=== PATIENT | female | born 2000 | race Caucasian/White ===

== ENCOUNTER 2021-02-01 15:04 | Outpatient (REF) | payer OTHER, SELFPAY ==
[2021-02-01 16:26] LABS: MANUAL DIFF FLAG NO
[2021-02-01 16:33] LABS: Basophils Percent Auto 0.2 % (0-2); Eosinophils Absolute Auto 0.1 X10*3/uL (0.0-0.4); Eosinophils Percent Auto 0.7 % (0-4); Hematocrit 39.1 % (37-47); Hemoglobin 12.8 g/dl (12.0-16.0); Imm Gran Abs Auto 0.02 X10*3/uL (0.00-0.03); Imm Gran Pct Auto 0.2 % (0.0-0.4); Lymphocytes Absolute Auto 2.9 X10*3/uL (1.2-4.9); Lymphocytes Percent Auto 32.7 % (20-40); Mean Corpuscular HGB Conc 32.7 g/dl (31.0-35.0); Mean Corpuscular Hemoglobin 28.4 pg (27.0-33.0); Mean Corpuscular Volume 86.9 fL (80-98); Mean Platelet Volume 10.2 fL (9.4-12.3); Monocytes Absolute Auto 0.7 X10*3/uL (0.1-1.2); Monocytes Percent Auto 8.2 % (2-11); Neutrophils Absolute Auto 5.2 X10*3/uL (2.0-8.3); Platelet Count 236 X10*3/uL (160-400); Red Cell Distribution Width 12.4 % (11.0-16.0); White Blood Count 8.9 X10*3/uL (4.8-10.8)
[2021-02-01 16:53] LABS: Alanine Aminotransferase 9 U/L (0-31); Anion Gap 12 (12-20); Aspartate Amino Transferase 14 U/L (5-31); Blood Urea Nitrogen 9 mg/dL (9-16); Calcium 9.9 mg/dL (8.4-10.2); Carbon Dioxide 25 mmol/L (22-29); Chloride 105 mmol/L (96-108); Cholesterol 158 mg/dL; Estimated Glomerular Filt Rate > 60; Glucose Fasting 81 mg/dL (60-99); HDL Cholesterol 43 mg/dL; LDL Cholesterol Calculated 101 mg/dl; Potassium 4.2 mmol/L (3.3-5.1); Sodium 138 mmol/L (135-145); Triglycerides 71 mg/dL
[2021-02-01 17:13] LABS: TSH reflex Free T4 1.45 uIU/mL (0.32-4.0); Vitamin D 25-OH Total 19.5 ng/mL (>30)
== END 2021-02-01 15:05 | disposition home or self-care (01) ==
LOC: HO.HMGCLDS 15:04
PROVIDERS: PCP Internal Medicine; Visit Provider Internal Medicine
DX: Z00.00 Encounter for general adult medical examination without abnormal findings (principal); R42 Dizziness and giddiness; F90.0 Attention-deficit hyperactivity disorder, predominantly inattentive type; I10 Essential (primary) hypertension
CPT/HCPCS: 36415; 80048; 80061; 82306; 84443; 84450; 84460; 85025

== ENCOUNTER 2021-09-17 21:54 | Emergency (ER) | payer OTHER, SELFPAY ==
[2021-09-17 22:01] VITALS: BP 114/70; PULSE 118; RESP 16; TEMP 36.8; O2SAT 99; BMI 24.7
[2021-09-17 22:12] LABS: MANUAL DIFF FLAG NO
[2021-09-17 22:13] LABS: Basophils Percent Auto 0.2 % (0-2); Eosinophils Percent Auto 0.2 % (0-4); Hematocrit 42.3 % (37.0-47.0); Hemoglobin 14.1 g/dl (12.0-16.0); Imm Gran Abs Auto 0.08 X10*3/uL (0.00-0.03); Imm Gran Pct Auto 0.5 % (0.0-0.4); Lymphocytes Absolute Auto 0.8 X10*3/uL (1.2-4.9); Lymphocytes Percent Auto 4.7 % (20-40); Mean Corpuscular HGB Conc 33.3 g/dl (31.0-35.0); Mean Corpuscular Hemoglobin 28.8 pg (27.0-33.0); Mean Corpuscular Volume 86.3 fL (80.0-98.0); Monocytes Absolute Auto 0.9 X10*3/uL (0.1-1.2); Monocytes Percent Auto 5.2 % (2-11); Neutrophils Absolute Auto 15.5 x10*3/uL (2.0-8.3); Neutrophils Percent Auto 89.2 % (45-73); Platelet Count 201 X10*3/uL (160-400); Red Cell Distribution Width 12.4 % (11.0-16.0); White Blood Count 17.4 X10*3/uL (4.8-10.8)
[2021-09-17 22:32] LABS: Alanine Aminotransferase 33 U/L (0-31); Albumin Level 4.7 g/dL (3.5-5.0); Alkaline Phosphatase 65 U/L (39-117); Anion Gap 14 (12-20); Aspartate Amino Transferase 25 U/L (5-31); Bilirubin Direct 0.4 mg/dL (0.0-0.5); Blood Urea Nitrogen 11 mg/dL (9-16); Calcium 9.6 mg/dL (8.4-10.2); Carbon Dioxide 25 mmol/L (22-29); Chloride 103 mmol/L (96-108); Creatinine Clr Calc Pharmacy 121.7; Estimated Glomerular Filt Rate > 60; Glucose Random 114 mg/dL (60-115); Lipase 13 U/L (8-78); Potassium 4.2 mmol/L (3.3-5.1); Sodium 138 mmol/L (135-145); Total Protein 7.9 g/dL (6.5-8.0)
--- NOTE | 2021-09-17 22:34 | ED.NAVMDI ---
HPI - Nausea/Vomiting/Diarrhea General Chief complaint: Nausea/Vomiting/Diarrhea Stated complaint: food poisoning Time Seen by Provider: 09/17/21 22:18 Source: patient Mode of arrival: ambulatory Limitations: no limitations History of Present Illness HPI Narrative: 20-year-old female who presents emergency department for evaluation of nausea vomiting diarrhea and flank pain. Patient states that she became ill around 19:30 hours. She states that she has vomited multiple times. She has also had 3 episodes of loose, watery diarrheal stool. She denies any blood in the emesis or the stool. She also states that she developed bilateral flank pain. She describes the pain as a soreness which is constant is 7/10 at its worst. She states that she had similar flank pain approximately 3 years prior when she had a kidney infection. The patient states that she did eat some chicken at work several hours prior to becoming ill and she is not sure if the chicken was cooked well. She is unaware of any other coworkers being ill from eating the chicken. The patient denied fever chills. She has had rhinorrhea and a cough x2 days, the cough is nonproductive. She denied chest pain, shortness of breath or dyspnea on exertion. She states she is having myalgias arthralgias. She has not been vaccinated for COVID-19. MD elicited complaint: nausea, vomiting and diarrhea Pertinent past history: other (Pyelonephritis) Onset (ago): hour(s) (3) Description of vomiting: watery and bilious Description of diarrhea: watery Associated nausea: Yes Associated abdominal pain: Yes (Bilateral flank pain) Location of pain: L flank and R flank Radiation: does not radiate Pain consistency: constant Severity: severe Pain scale (0-10): 7 Quality: other (Soreness) Exacerbating factors: eating (Drinking) Context: possible food poisoning (ate undercooked chicken at work) Associated symptoms: myalgias, cough, malaise, nausea/vomiting and weakness Related Data Previous Rx's Medication Instructions Recorded cholecalciferol (vitamin D3) 1,250 1,250 mcg PO QWEEK 90 Days #13 cap 02/02/21 mcg (50,000 unit) capsule ondansetron 4 mg disintegrating 4 mg PO Q6-8H PRN #14 tab 09/18/21 tablet Allergies Allergy/AdvReac Type Severity Reaction Status Date / Time No Known Allergies Allergy Verified 09/17/21 22:01 [No Known Allergies*] Review of Systems Review of Systems: Yes all other systems are reviewed and are negative Gastrointestinal: Gastrointestinal: Reports nausea [facility] Past Medical History [facility] Narrative: Past medical history: Reviewed below, pyelonephritis 3 years prior. Past surgical history: None. Social history: She denies tobacco, alcohol and drug use. Medical History ADHD (attention deficit hyperactivity disorder), inattentive type Intermittent lightheadedness Surgical History No pertinent past surgical history Family History Family History Father Substance abuse Mental health disorder Maternal Grandmother Mental health disorder Social History Social History Housing: Apartment Patient Tobacco Use Status: Never used Tobacco e-Cigarette/Vaping Use: Former Use Second Hand Smoke Exposure: Yes Advance Directives: No Advance Directives Information Provided: No Patient : No Current occupational status: employed Physical Exam Vital Signs: Vital Signs: Last Vital Signs Temp 98.2 F 09/18/21 00:00 Pulse 91 09/18/21 00:00 Resp 16 09/18/21 00:00 BP 100/51 L 09/18/21 00:00 Pulse Ox 99 09/18/21 00:00 BMI result Body Mass Index 24.7 Const: Other: Awake, alert, female patient, appears to be in distress and she is actively vomiting at the time of my interview, patient's emesis consisted of yellow bilious material, small amount HEENT: Head: Yes normal to inspection, Yes normocephalic and Yes atraumatic Ears: external ears normal General nose exam: Normal external nose present Face and sinus: Yes normal facial exam Mouth: Normal oral and palatal mucosa present Throat: Yes posterior oropharynx normal Eyes: General: appearance normal, both eyes and all related structures Pupils: Equal, round and reactive pupils present Neck: Neck: Yes normal visual inspection, Yes no lymphadenopathy, Yes trachea midline and Yes supple Chest: Chest palpation & inspection: normal inspection of the chest and normal palpation of entire chest wall Resp: Effort & Inspection: normal respiratory effort and able to speak in complete sentences Auscultation: clear to auscultation bilaterally Cardio: Rate: regular rate Rhythm: regular rhythm Heart sounds: S1 normal heart sound present, S2 normal heart sound present and no murmurs GI: Inspection: Yes normal to inspection Palpation (GI): Soft to palpation, Tenderness to palpation present (GI) (Mild diffuse tenderness) and no guarding Auscultation: normal bowel sounds : General: Yes CVA tenderness (Moderate) bilateral Back/Spine/Pelvis: Back: CVA tenderness (Moderate) Skin: General skin exam: no rashes or lesions noted Neuro: Cranial nerves: Yes CN's II-XII intact bilaterally and Yes Equal, round and reactive pupils present Cognition (Neuro): normal cognition Motor exam (neuro): 5/5 motor strength present throughout Extrem: General: Yes normal to inspection Psych: Appearance: grossly normal Speech and movement: Normal speech and movement present Affect: normal affect Attitude: cooperative Thought process: Normal thought process present Thought content: Normal thought content present Course Course Course Narrative: 20-year-old female who presents emergency department for evaluation of sudden onset of nausea and vomiting which started this evening at 19:30 hours, she is also complaining of bilateral flank pain with no frequency urgency or dysuria. Patient has had rhinorrhea and a nonproductive cough for 2 days. She also has myalgias and arthralgias. On examination she was actively vomiting. Vital signs revealed tachycardia with a heart rate of 118. Vital signs otherwise unremarkable. Exam did reveal diffuse mild abdominal tenderness and bilateral moderate CVA tenderness. Differential includes was not limited to pyelonephritis, viral syndrome, COVID-19, influenza. Laboratory evaluation was ordered including CBC, CMP, lipase, urinalysis, urine test. Patient will be treated with Toradol 15 mg IV, Zofran 4 mg IV and normal saline x 2 L 0047: Laboratory evaluation: WBC elevated 17,400, laboratory evaluation otherwise unremarkable. RSV, influenza and COVID-19 tests were negative. Patient is feeling significantly better after the above treatment. Patient is finishing her 2 L and she will be discharged home. Patient was prescribed Zofran ODT and advised to take Tylenol ibuprofen. She was also advised to stay on a brat diet. She was given printed and verbal instructions and discharged home MDM - Nausea/Vomiting/Diarrhea Lab Data Result diagrams: 09/17/21 22:08 09/17/21 22:08 Labs: Lab Results 09/17/21 09/17/21 09/17/21 Range/Units 22:08 22:08 23:23 WBC 17.4 H (4.8-10.8) X10*3/uL RBC 4.90 (4.20-5.50) X10*6/uL Hgb 14.1 (12.0-16.0) g/dl Hct 42.3 (37.0-47.0) % MCV 86.3 (80.0-98.0) fL MCH 28.8 (27.0-33.0) pg MCHC 33.3 (31.0-35.0) g/dl RDW 12.4 (11.0-16.0) % Plt Count 201 (160-400) X10*3/uL MPV 10.0 (9.4-12.3) fL Immature Gran % (Auto) 0.5 H (0.0-0.4) % Neut % (Auto) 89.2 H (45-73) % Lymph % (Auto) 4.7 L (20-40) % [place] % (Auto) 5.2 (2-11) % Eos % (Auto) 0.2 (0-4) % Baso % (Auto) 0.2 (0-2) % Lymph # (Auto) 0.8 L (1.2-4.9) X10*3/uL [place] # (Auto) 0.9 (0.1-1.2) X10*3/uL Eos # (Auto) 0.0 (0.0-0.4) X10*3/uL Baso # (Auto) 0.0 (0.0-0.2) X10*3/uL Abs Immat Gran (auto) 0.08 H (0.00-0.03) X10*3/uL Absolute Neuts (auto) 15.5 H (2.0-8.3) x10*3/uL Absolute Nucleated RBC 0.000 (0.0-0.012) X10*3/uL Nucleated RBC % (auto) 0.0 (0.0-0.2) /100WBC Sodium 138 (135-145) mmol/L Potassium 4.2 (3.3-5.1) mmol/L Chloride 103 (96-108) mmol/L Carbon Dioxide 25 (22-29) mmol/L Anion Gap 14 (12-20) BUN 11 (9-16) mg/dL Creatinine 0.77 (0.5-1.4) mg/dL Estim Creat Clear Calc 121.7 Estimated GFR > 60 Random Glucose 114 (60-115) mg/dL Calcium 9.6 (8.4-10.2) mg/dL Total Bilirubin 1.0 (0.0-1.0) mg/dL Direct Bilirubin 0.4 (0.0-0.5) mg/dL AST 25 D (5-31) U/L ALT 33 H (0-31) U/L Alkaline Phosphatase 65 (39-117) U/L Total Protein 7.9 (6.5-8.0) g/dL Albumin 4.7 (3.5-5.0) g/dL Lipase 13 (8-78) U/L Urine Color Urine Appearance Urine pH (5.0-8.0) Ur Specific [place] (1.005-1.025) Urine Protein (NEG-TRACE) MG/DL Urine Glucose (UA) (NEG) MG/DL Urine Ketones (NEG) MG/DL Urine Blood (NEG) Urine Nitrite (NEG) Ur Leukocyte Esterase (NEG) Urine Test NEGATIVE (NEGATIVE) Influenza Type A (PCR) (Negative) Influenza Type B (PCR) (Negative) RSV RNA Qual (PCR) (Negative) SARS-CoV-2 RNA (RT-PCR) (Negative) 09/17/21 09/17/21 Range/Units 23:23 23:24 WBC (4.8-10.8) X10*3/uL RBC (4.20-5.50) X10*6/uL Hgb (12.0-16.0) g/dl Hct (37.0-47.0) % MCV (80.0-98.0) fL MCH (27.0-33.0) pg MCHC (31.0-35.0) g/dl RDW (11.0-16.0) % Plt Count (160-400) X10*3/uL MPV (9.4-12.3) fL Immature Gran % (Auto) (0.0-0.4) % Neut % (Auto) (45-73) % Lymph % (Auto) (20-40) % [place] % (Auto) (2-11) % Eos % (Auto) (0-4) % Baso % (Auto) (0-2) % Lymph # (Auto) (1.2-4.9) X10*3/uL [place] # (Auto) (0.1-1.2) X10*3/uL Eos # (Auto) (0.0-0.4) X10*3/uL Baso # (Auto) (0.0-0.2) X10*3/uL Abs Immat Gran (auto) (0.00-0.03) X10*3/uL Absolute Neuts (auto) (2.0-8.3) x10*3/uL Absolute Nucleated RBC (0.0-0.012) X10*3/uL Nucleated RBC % (auto) (0.0-0.2) /100WBC Sodium (135-145) mmol/L Potassium (3.3-5.1) mmol/L Chloride (96-108) mmol/L Carbon Dioxide (22-29) mmol/L Anion Gap (12-20) BUN (9-16) mg/dL Creatinine (0.5-1.4) mg/dL Estim Creat Clear Calc Estimated GFR Random Glucose (60-115) mg/dL Calcium (8.4-10.2) mg/dL Total Bilirubin (0.0-1.0) mg/dL Direct Bilirubin (0.0-0.5) mg/dL AST (5-31) U/L ALT (0-31) U/L Alkaline Phosphatase (39-117) U/L Total Protein (6.5-8.0) g/dL Albumin (3.5-5.0) g/dL Lipase (8-78) U/L Urine Color DK YELLOW Urine Appearance CLEAR Urine pH 8.5 H (5.0-8.0) Ur Specific [place] 1.015 (1.005-1.025) Urine Protein TRACE (NEG-TRACE) MG/DL Urine Glucose (UA) NEG (NEG) MG/DL Urine Ketones 15 (NEG) MG/DL Urine Blood NEG (NEG) Urine Nitrite NEG (NEG) Ur Leukocyte Esterase NEG (NEG) Urine Test (NEGATIVE) Influenza Type A (PCR) NEGATIVE (Negative) Influenza Type B (PCR) NEGATIVE (Negative) RSV RNA Qual (PCR) NEGATIVE (Negative) SARS-CoV-2 RNA (RT-PCR) NEGATIVE (Negative) Discharge Plan Discharge Clinical Impression: Acute viral syndrome, Acute dehydration Vomiting Qualifiers: Vomiting type: bilious vomiting Nausea presence: with nausea Qualified Code(s): R11.14 - Bilious vomiting Diarrhea Qualifiers: Diarrhea type: unspecified type Qualified Code(s): R19.7 - Diarrhea, unspecified Patient Disposition: Home, Self-Care Instructions: Viral Syndrome (ED) Additional Instructions: Your laboratory evaluation did reveal an elevated white blood cell count otherwise was unremarkable. Your urine test was negative for urinary tract infection. Your COVID-19, influenza and RSV viral testing was negative. There are many other viruses that can cause nausea, vomiting , diarrhea, abdominal pain and muscle aches. These are usually self-limited and get better in 3-7 days. Take Zofran ODT 4 mg pills, 1 pill dissolved in your mouth every 8 hours as needed for nausea and vomiting. Take ibuprofen 200 mg pills, 3 pills every 6 hours as needed for pain. Take Tylenol (acetaminophen) 500 mg pills, 2 pills every 4 to 6 hours as needed for pain. Follow-up with your doctor in 2 days. Please return to the emergency department if your symptoms get worse or if you develop any symptoms that are concerning to you. Prescriptions: New ondansetron 4 mg tablet,disintegrating 4 mg PO Q6-8H PRN (Reason: nausea and vomiting) Qty: 14 0RF No Action cholecalciferol (vitamin D3) 1,250 mcg (50,000 unit) capsule 1,250 mcg PO QWEEK 90 Days Qty: 13 0RF
[2021-09-17] MEDS: ondansetron HCL 4 MG/2 ML VIAL IVPUSH (22:48)
[2021-09-17] MEDS: Ketorolac Tromethamine 15 MG/ML VIAL IVPUSH (22:49)
[2021-09-17] MEDS: 0.9 % Sodium Chloride 1,000 ML 999 ML IV (22:53)
[2021-09-17 23:29] LABS: Appearance Urine CLEAR; Color Urine DK YELLOW; Glucose Urine UA NEG (NEG); Leukocyte Esterase Urine NEG (NEG); Nitrite Urine NEG (NEG); PH 8.5 (5.0-8.0); Specific Gravity - Urine 1.015 (1.005-1.025); Urine Blood NEG (NEG); Urine Ketones 15 MG/DL (NEG); Urine Protein TRACE MG/DL (NEG-TRACE)
[2021-09-17 23:31] LABS: UPreg QC Valid YES; Urine Pregnancy NEGATIVE (NEGATIVE)
[2021-09-18] VITALS: BP 100/51; PULSE 91; RESP 16; TEMP 36.8; O2SAT 99
[2021-09-18 00:07] LABS: Influenza A PCR NEGATIVE (Negative); Influenza B PCR NEGATIVE (Negative); Resp Syncy Virus RNA Qual PCR NEGATIVE (Negative); SARS COV2 PCR INHOUSE NEGATIVE (Negative)
[2021-09-18 01:14] VITALS: BP 101/49; PULSE 103; RESP 16; TEMP 36.5
== END 2021-09-18 01:40 | disposition home or self-care (01) ==
PROVIDERS: Emergency Provider Emergency Medicine Emergency Medical Services; PCP Internal Medicine
DX: B34.9 Viral infection, unspecified (principal); E86.0 Dehydration; R19.7 Diarrhea, unspecified; R11.14 Bilious vomiting; Z20.822 Contact with and (suspected) exposure to COVID-19
CPT/HCPCS: 0241U; 36415; 80048; 80076; 81003; 81025; 83690; 85025; 96361; 96374; 96375; 99284; J1885; J2405

== ENCOUNTER 2024-10-08 14:25 | Outpatient (AMB) | payer OTHER, SELFPAY ==
--- NOTE | 2024-10-08 15:34 | A.OFFPC_ITS ---
Vital Signs 10/08/24 15:35 Height 5 ft 8 in Weight 174 lb 6 oz BMI 26.5 BP 110/74 Blood Pressure Location Rt brachial Position Sitting Pulse 91 Pulse Source Pulse Oximeter Pulse Oximetry (%) 98 Oxygen Delivery Method Room Air Intake Visit Reasons: PE Intake Note: Pt is here today for her annual physical. Allergies No Known Allergies [No Known Allergies*] Allergy (Verified 10/08/24 15:37) Medication List - Last Reconciled 10/08/24 by Indira Saldana MD No Known Home Meds Tobacco use date assessed: 10/08/24 Dental Screening Dental Screen Date: 10/08/24 Did you have a dental visit in the last 12 months?: Yes Did you have a dental problem in the last 6 months where you did not have access to dental care?: No Was dental information given to patient?: Patient has dentist HPI PE HPI Details 23-year-old lady here today for her phys ical exam. She is up-to-date date with her cervical cancer screening, sees Dr. Pichardo her cervical cancer screening and and pelvic exam, which patient states has been normal limits. She is a full-time student at [employer], and has been having difficulty keeping her focus and concentration on her studies, and has been unable give finish several tasks in a timely manner. Underwent neuropsychologic testing in 2020 in [place] and diagnosed to have ADD, started on Wellbutrin. Patient however states that she did not like the way it made her feel and stopped taking the medication. She would like to be referred to a different psychiatrist and try other treatment options for ADD. [facility] Medical History (Updated 10/08/24 @ 16:05 by Indira Saldana MD) Vitamin D deficiency Difficulty concentrating Family history of thyroid disease Annual visit for general adult medical examination with abnormal findings ADHD (attention deficit hyperactivity disorder), inattentive type Intermittent lightheadedness Surgical History No pertinent past surgical history Family History Father Substance abuse Mental health disorder Maternal Grandmother Mental health disorder Social History Housing: Apartment Patient Tobacco Use Status: Never used Tobacco e-Cigarette/Vaping Use: Former Use Second Hand Smoke Exposure: Yes Current occupational status: employed Cognitive needs: No Hearing needs: No Vision needs: Yes Female Reproductive History Menstrual Date of last menstrual period: 10/01/24 control method: condoms Other: Goes to [facility], sees Dr. Marino Klein Questionnaire PHQ-9 Over the last 2 weeks, how often have you been bothered by any of the following problems? 1. Little interest or pleasure in doing things: not at all 2. Feeling down, depressed, or hopeless: not at all 3. Trouble falling or staying asleep, or sleeping too much: several days 4. Feeling tired or having little energy: more than half the days 5. Poor appetite or overeating: more than half the days 6. Feeling bad about yourself - or that you are a failure or have let yourself or your family down: not at all 7. Trouble concentrating on things, such as reading the newspaper or watching television: more than half the days 8. Moving or speaking so slowly that other people could have noticed. Or the opposite - being so fidgety or restless that you have been moving around a lot more than usual: not at all 9. Thoughts that you would be better off or of hurting yourself in some way: not at all Total score: 7 Depression Screening Interpretation: Negative Depression Screening Done: Yes 78036 - PHQ-9 Billing: Yes Source: Developed by Drs. Yonas Huizar, Tamika Manuel, Tanvir Chu and colleagues, with an educational odalys from [employer]. Thrive Questionnaire Date Thrive assessed: 10/08/24 I am a: Patient What is your living situation today?: I have a steady place to live Within the past 12 months, did the food you bought not last and you didn't have the money to get more?: Never true Within the past 12 months, did you worry whether your food would run out before you got money to buy more?: Never true Do you have trouble paying for medicines?: No Do you have trouble getting transportation to medical appointments?: No Do you have trouble paying your heating and electricity bill?: No Do you have trouble taking care of your child, family member or friend?: No Do you have trouble with day-to-day activities such as bathing, preparing meals, shopping, managing finances, etc.?: No Are you currently unemployed and looking for a job?: No Are you interested in more education?: No Please select the resources that you would like help with: None Currently or been in a relationship where the following occur: No concerns reported THRIVE Score: 0 AUDIT C Alcohol Use Questionnaire (AUDIT-C) 1. How often do you have a drink containing alcohol?: Monthly or less 2. How many drinks containing alcohol do you have on a typical day when you are drinking?: 1 or 2 3. How often do you have six or more drinks on one occasion?: Never Total Score: 1 Score Reviewed/Action Taken: Yes LEAH-7 AMB Questionnaire LEAH-7 Date LEAH - 7 assessed: 10/08/24 Feeling nervous, anxious, or on edge: 0 = Not at all Not being able to stop or control worryin = Not at all Worrying too much about different things: 1 = Several days Trouble relaxin = Several days Being so restless that it is hard to sit still: 0 = Not at all Becoming easily annoyed or irritable: 1 = Several days Feeling afraid as if something awful might happen: 0 = Not at all Total LEAH-7 score (0-4 normal; 5-9 mild; 10-14 moderate; 15-21 severe): 3 Source: Developed by Drs. Yonas Huizar, Tamika Manuel, Tanvri Chu and colleagues, with an educational odalys from [employer]. LEAH-7 Assessment Billing LEAH-7 Assessment Tool: LEAH-7 Assessment 60273 Review of Systems Const Reports no additional complaints Eyes Details: Goes to [address] [place] [address] for her routine eye exam, Reports blurry vision (myopia) and Reports requires corrective lenses ENT Reports no additional complaints Card Reports no additional complaints Resp Reports no additional complaints GI Reports no additional complaints Reports no additional complaints and Denies nipple discharge Musc Reports no additional complaints Skin/Breast Denies breast skin changes, Denies breast pain, Denies breast mass, Denies nipple discharge and Denies rash Neuro Reports no additional complaints Psych Reports as per HPI Endo Reports no additional complaints Sukhwinder/Lymph Reports no additional complaints Aller/Immun Reports no additional complaints Physical exam (Primary Care) Vital Signs: Last Vital Signs Pulse 91 10/08/24 15:35 BP 110/74 10/08/24 15:35 Pulse Ox 98 10/08/24 15:35 Oxygen Delivery Method Room Air 10/08/24 15:35 BMI result Body Mass Index 26.5 Tobacco/Smoking Status: Tobacco use Status Tobacco use date assessed 10/08/24 10/08/24 15:40 Patient Tobacco Use Status Never used Tobacco 10/08/24 15:35 e-Cigarette/Vaping Use Former Use 10/08/24 15:35 PHQ-9: PHQ-9 Score PHQ-9: Total score 7 10/08/24 16:42 Depression Screening Interpretation: Negative Thrive Assessment: Date of Thrive Assessment Date Thrive assessed 10/08/24 10/08/24 15:40 Currently or been in a relationship where the following occur: No concerns reported Const General: no acute distress and alert Orientation/consciousness: patient oriented x3 HENMT Head: Yes normocephalic Ears: external ears normal, TM's normal bilaterally and EAC's normal General nose exam: Normal external nose present Face and sinus: Yes face symmetric Mouth: Normal oral and palatal mucosa present, oropharynx normal and moist mucous membranes Eyes General: appearance normal, both eyes and all related structures Eyelids: Yes eyelids normal Conjunctivae: conjunctivae normal Sclerae: sclerae normal Pupils: Equal, round and reactive pupils present EOM: EOMs intact bilaterally Neck Neck: Yes full ROM, Yes no lymphadenopathy and Yes supple Thyroid: Thyroid normal Resp Effort & Inspection: normal respiratory effort and able to speak in complete sentences Auscultation: clear to auscultation bilaterally Cardio Rate: regular rate Rhythm: regular rhythm Heart sounds: S1 normal heart sound present and S2 normal heart sound present GI Palpation (GI): Soft to palpation, nontender, no guarding and no masses Auscultation: normal bowel sounds General: Yes no CVA tenderness Back/Spine/Pelvis Back: no CVA tenderness and No back tenderness Skin General skin exam: no rashes or lesions noted Neuro General: patient oriented x3, gait normal, moves all extremities, Normal light touch and pain sensation, no focal motor deficits and CN's II-XI intact bilaterally Cranial nerves: Yes Equal, round and reactive pupils present Cognition (Neuro): normal cognition Gait exam (Neuro): Normal gait present Motor exam (neuro): 5/5 motor strength present throughout Extrem General: Yes normal to inspection, Yes full ROM, Yes no joint enlargement, Yes n o pedal edema and Yes normal gait Psych Appearance: grossly normal and well kempt Mental Status: mental status grossly normal Speech and movement: Normal speech and movement present Affect: normal affect Attitude: cooperative Thought process: Normal thought process present Thought content: Normal thought content present Coding Level of Care Code Est Pt Prev Care 18-39y(19929) Diagnoses ADHD (attention deficit hyperactivity disorder), inattentive type F90.0 Difficulty concentrating R41.840 Annual visit for general adult medical examination with abnormal findings Z00.01 Family history of thyroid disease Z83.49 Additional Codes LEAH-7 Assessment Billing - LEAH-7 Assessment Tool: LEAH-7 Assessment 27296 ([id number]) PHQ-9 - 89284 - PHQ-9 Billing: Yes ([id number]) Assessment & Plan Assessment & Plan (1) ADHD (attention deficit hyperactivity disorder), inattentive type: Code(s): F90.0 - Attention-deficit hyperactivity disorder, predominantly inattentive type Category: Medical Plan: Will refer to Psychiatry for further evaluation management advised to provide a copy of her previous neuropsychologic evaluation (2) Difficulty concentrating: Code(s): R41.840 - Attention and concentration deficit Category: Medical Plan: Referred to Psychiatry for further evaluation management (3) Annual visit for general adult medical examination with abnormal findings: Code(s): Z00.01 - Encounter for general adult medical examination with abnormal findings Category: Medical Plan: Will check appropriate labs. Continue regular dental visit every 6 months and regular eye exams, at least every 2 years. Take adequate calcium in diet and vitamin-D 3 at 2000 IU per cap once a day, in addition to weight-bearing exercises to help maintain good muscle tone and weight control. Instructed to do self-breast exam, goes to [facility] for her routine Pap and pelvic exam, copy of last Pap smear results requested. Advised to get yearly flu vaccine, up-to-date with her Tdap (4) Family history of thyroid disease: Code(s): Z83.49 - Family history of other endocrine, nutritional and metabolic diseases Category: Medical Plan: Will check TSH with free T4 level Orders: Orders Alanine Aminotransferase 10/08/24 R41.840 - Attention and concentration deficit, Z00.01 - Encounter for general adult medical examination with abnormal findings, Z13.220 - Encounter for screening for lipoid disorders, Z83.49 - Family history of other endocrine, nutritional and metabolic diseases Lipid Panel 10/08/24 R41.840 - Attention and concentration deficit, Z00.01 - Encounter for general adult medical examination with abnormal findings, Z13.220 - Encounter for screening for lipoid disorders, Z83.49 - Family history of other endocrine, nutritional and metabolic diseases Vitamin D 25-OH Total 10/08/24 E55.9 - Vitamin D deficiency, unspecified, R41.840 - Attention and concentration deficit, Z00.01 - Encounter for general adult medical examination with abnormal findings, Z13.220 - Encounter for screening for lipoid disorders, Z83.49 - Family history of other endocrine, nutritional and metabolic diseases Aspartate Amino Transferase 10/08/24 R41.840 - Attention and concentration deficit, Z00.01 - Encounter for general adult medical examination with abnormal findings, Z13.220 - Encounter for screening for lipoid disorders, Z83.49 - Family history of other endocrine, nutritional and metabolic diseases Complete Blood Count Auto Diff 10/08/24 R41.840 - Attention and concentration deficit, Z00.01 - Encounter for general adult medical examination with abnormal findings, Z13.220 - Encounter for screening for lipoid disorders, Z83.49 - Family history of other endocrine, nutritional and metabolic diseases Basic Metabolic Panel Fasting 10/08/24 R41.840 - Attention and concentration deficit, Z00.01 - Encounter for general adult medical examination with abnormal findings, Z13.220 - Encounter for screening for lipoid disorders, Z83.49 - Family history of other endocrine, nutritional and metabolic diseases TSH reflex Free T4 10/08/24 R41.840 - Attention and concentration deficit, Z00.01 - Encounter for general adult medical examination with abnormal findings, Z13.220 - Encounter for screening for lipoid disorders, Z83.49 - Family history of other endocrine, nutritional and metabolic diseases Referrals Psychiatry Referral F90.0 - Attention-deficit hyperactivity disorder, predominantly inattentive type, R41.840 - Attention and concentration deficit
[2024-10-08 15:35] VITALS: BP 110/74; PULSE 91; O2SAT 98; BMI 26.5
--- OUTSIDE RECORDS SUMMARY | 2024-10-08 17:10 | XMS_ITS | Encounter Summary ---
Author Organization [facility] Address [address] [place] [id number] Phone Care Team Providers Care Junior Architect Name Role Phone Ana Gutiérrez MD Primary Care Prov ider Encounter Details Date Type Department Care Team (Late st Contact Info) Description 08/23/2017 Conversion Encounter [facility] [address] [phone] Ana Serrano MD [address] [address] Social History Tobacco Use Types Packs/Day Years Used Date Smoking Tobacco: Never Assessed Comments Unknown Sex and Gender Information Value Date Recorded Sex Assigned at Not on file Legal Sex Female 12:18 PM EST Gender Identity Not on file Sexual Orientation Straight 04/25/2019 6: 16 PM EDT documented as of this encounter Plan of Treatment Not on file documented as of this encounter Visit Diagnoses Not on filedocumented in this encounter Care Teams Junior Architect Relationship Specialty Start Date End Date Ana Gutiérrez MD [address] [address] PCP - General 08/01/17 documented as of this encounter
--- OUTSIDE RECORDS SUMMARY | 2024-10-08 17:10 | XMS_ITS | Encounter Summary ---
Author Organization [facility] Address [address] [place] [phone] Phone Care Team Providers Care Gear Tester Name Role Phone Ana Gutiérrez MD Primary Care Prov ider Reason for Visit * Reason Comments Med Refill Encounter Details Date Type Department Care Team (Late st Contact Info) Description 11/17/2018 Refill [facility] [address] [phone] Ambar Huitron MD [address] [address] Low ferritin Social History Tobacco Use Types Packs/Day Years Used Date Smoking Tobacco: Never Smokeless Tobacco: Never Alcohol Use Standard Drinks/Week Comments No 0 (1 standard drink = 0.6 oz pur e alcohol) Comments No Sex and Gender Information Value Date Recorded Sex Assigned at Not on file Legal Sex Female 12:18 PM EST Gender Identity Not on file Sexual Orientation Straight 04/25/2019 6: 16 PM EDT documented as of this encounter Plan of Treatment Not on file documented as of this encounter Visit Diagnoses Diagnosis Low ferritin Other nonspecific findings on examination of blood documented in this encounter Care Teams Gear Tester Relationship Specialty Start Date End Date Ana Gutiérrez MD [address] [address] PCP - General 08/01/17 documented as of this encounter
--- OUTSIDE RECORDS SUMMARY | 2024-10-08 17:10 | XMS_ITS | Clinical Summary ---
Author Organization [facility] Address [address] [place] [phone] Phone Care Team Providers Care Renewable Energy Consultant Name Role Phone Ana Gutiérrez MD Primary Care Prov ider Allergies No known active allergies Medications Levonorgestrel 13.5 MG intrauterine device by Intrauterine route. Active ibuprofen 600 MG tabletIndication s:Dysmenorrhea Take 1 tablet (600 mg total) by mouth every 6 (six) hours as needed for mild pain or moderate pain. 50 tablet 1 9 Active Additional Information Patient not taking.Reported on 08/08/2019 naproxen sodium 550 MG tablet Take 550 mg by mouth every 12 (twelve) hours as needed. 2 9 Active cetirizine (ZYRTEC ALLERGY) 10 MG tabletIndication s:Seasonal allergic rhinitis due to pollen Take 1 tablet (10 mg total) by mouth nightly as needed for allergies. 30 tablet 1 9 Active fluticasone (FLONASE) 50 MCG/ACT nasal sprayIndications :Seasonal allergic rhinitis due to pollen Administer 2 sprays into each nostril daily as needed for rhinitis or allergies. 1 Units 1 9 Active Additional Information Patient not taking.Reported on 02/28/2019 ibuprofen 600 MG tablet ibuprofen 600 mg tablet Active Levonorgestrel (Megan) 13.5 MG intrauterine device Megan 14 mcg/24 hrs (3 yrs) 13.5 mg intrauterine device Take 1 device by intrauterine route. Active Active Problems Problem Noted Date Diagnosed Date Palpitation 08/08/2019 Assessment & Plan (08/08/2019 7:33 PM EST): Awaiting Holter results, no hx of syncope Influenza-like illness 08/08/2019 Assessment & Plan (08/08/2019 7:33 PM EST): Signs of clinical deterioration were discussed with parent, will follow in 2-3 days if symptoms persist or sooner if symptoms worsen. Supportive care for now History of pyelonephritis 10/10/2018 Overview (10/17/2018): E.coli s: ciprofloxacin nl. renal US. Refused influenza vaccine 06/21/2018 Other rosacea 08/01/2017 Irregular periods 05/01/2017 Acne vulgaris 02/14/2017 Dysmenorrhea 02/14/2017 History of hyperlipidemia 08/19/2014 History of mononucleosis Overview (11/10/2018): (+) EBV titres 05/2018 Resolved Problems Problem Noted Date Diagnosed Date Resolved Date 1st degree AV block 10/10/2018 07/05/19 20 Overview (07/05/2019): Incidental finding on EKG [facility] during acute illness, resolved spontaneously 11/10 Immunizations Immunization Administration Dates Next Due DTaP 5 03/03/2005, 3,07/27/2001,04/19,02/08/2001 HPV Vaccine 9 Valent 07/02/2018(Deferred : Parental decision),06/03/2018(Deferred: Parental decision) Hep A, ped/adol 06/03/2018 Hep B / HiB 07/04/2002,02/08/2001 Hep B, ped/adol 07/27/2001 Hib (PRP-OMP) 04/19/2001 IPV 03/03/2005, 3,04/19/2001,02/08 Influenza, injectable, quadrivalent 05/25/2008,1 Influenza, injectable, quadr ivalent, preservative free 06/03/2018(Deferred: Parental decision) MMR 03/03/2005,12/30/2001 Meningococcal B Trumenba 11/25/2018 Meningococcal Conj (Menactra) MCV4P 11/25/2018,0 02/13/2017 Pneumococcal Conjugate 07/04/2002,10/04/2001, Tdap 03/20/2012 Varicella 07/02/2018,12/30/2001 Family History Medical History Relation Name Comments Down syndrome Brother Thyroid disease Brother Relation Name Status Comments Brother Social History Tobacco Use Types Packs/Day Years Used Date Smoking Tobacco: Never Smokeless Tobacco: Never Alcohol Use Standard Drinks/Week Comments No 0 (1 standard drink = 0.6 oz pur e alcohol) Hunger/Food Answer Date Recorded No 03/20/2020 Stable Housing Answer Date Recorded No 03/20/2020 Transportation Concerns Answer Date Rec orded No 03/20/2020 Hazards in Home Answer Date Recorded No 07/03/2019 Financing Utilities Answer Date Recorde d No 07/03/2019 Safety at Home Answer Date Recorded No 07/03/2019 Outside Support Answer Date Recorded No 07/03/2019 Understanding Health Concerns Answer Da te Recorded No 07/03/2019 Financing Health Concerns Answer Date R ecorded No 07/03/2019 Missing School or Work Answer Date Shun rded No 07/03/2019 Comments No Sex and Gender Information Value Date Recorded Sex Assigned at Not on file Legal Sex Female 12:18 PM EST Gender Identity Not on file Sexual Orientation Straight 04/25/2019 6: 16 PM EDT Last Filed Vital Signs Vital Sign Reading Time Taken Comments Blood Pressure 107/67 08/08/2019 3:07 PM EST Pulse 97 08/08/2019 3:07 PM EST Temperature 37.3 ??C (99.2 ??F) 08/08/2019 3:07 PM ES T Respiratory Rate - - Oxygen Saturation 99% 08/08/2019 3:07 PM EST Inhaled Oxygen Concentration - - Weight 70.1 kg (154 lb 9.6 oz) 08/08/2019 3:07 P M EST Height 169.5 cm (5' 6.75 ) 08/08/2019 3:07 PM ES T Body Mass Index 24.4 08/08/2019 3:07 PM EST Plan of Treatment Health Maintenance Due Date Last Done Comments HPV Vaccines (1 - 3-dose series) 12/28/2015 Hepatitis A Vaccines (2 of 2 - 2-dose series) 12/02/2018 06/03/2018 Men B Vaccine (2 of 2 - Trum enba SCDM 2-dose series) 05/27/2019 11/25/2018 DTaP,Tdap,and Td Vaccines (7 - Td or Tdap) 03/20/2022 03/20/2012, 03/03/2005, 07/04/2002, Additional history exists Influenza Vaccines (#1) 2024 05/25/2008, 04/20 COVID-19 Vaccine (2023-2 5 season) 2024 HIB Vaccines Completed 07/04/2002, 03/26, 02/08/2001 Hepatitis B Vaccines Completed 07/04/2002, 07/27/2001, 02/08/2001 Pneumococcal Vaccine Completed 07/04/2002, 10/04/2001, 04/19/2001 IPV Vaccines Completed 03/03/2005, 06/25, 04/19/2001, Additional history exists MMR Vaccines Completed 03/03/2005, 12/30/2001 Varicella Vaccines Completed 07/02/2018, 12/30/2001 Meningococcal Vaccine Completed 11/25/2018, 017 Procedures * Due to [facility] law, this organization might not be sharing sensitive test results. Procedure Name Priority Date/Time Associated Diagnosis Comments CHLAMYDIA TRACHOMATIS, AMPLIFIED Routine 06/30/2019 Encounter for screening examination for sexually transmitted disease from Last 3 Months or Most Recently Relevant to Health Maintenance Results * Due to [place] [employer] law, this organization might not be sharing sensitive test results. * Chlamydia trachomatis, Amplified (06/30/2019) CHLAMYDIA, DNA PROBE NEGATIVE NEGATIVE [facility] Urine 06/30/2019 06/30/2019 10: 02 PM EST Narrative [facility] - 07/02/2019 1:38 PM EST [employer], a member of [address] [address] Lung Puller - Kadi Gracia MD us Ana Gutiérrez MD LAB BLOOD ORDERABL ES Final Result [facility] from Last 3 Months or Most Recently Relevant to Health Maintenance Insurance [facility] HMO [facility] HMO Care Teams Renewable Energy Consultant Relationship Specialty Start Date End Date Ana Gutiérrez MD [address] [place] [id number] PCP - General 08/01/17
--- OUTSIDE RECORDS SUMMARY | 2024-10-08 17:11 | XMS_ITS | Clinical Summary ---
Author Organization [facility] Address [address] [place] [address] Care Team Providers Care Loans Consultant Name Role Phone Unavailable Primary Care Provider Unavailabl e Social History Tobacco Use Types Packs/Day Years Used Date Smoking Tobacco: Never Assessed Comments Unknown Sex and Gender Information Value Date Recorded Sex Assigned at Not on file Legal Sex Female 4:14 PM EST Gender Identity Not on file Sexual Orientation Not on file Plan of Treatment Health Maintenance Due Date Last Done Comments Gonorrhea/Chlamydia Screening 2000 HPV Vaccines (1 - 3-dose series) 12/28/2015 Meningococcal B Vaccine (1 o f 2 - Standard) 2016 DTaP,Tdap,and Td Vaccines (1 - Tdap) 12/28/2019 Hepatitis B Vaccines (1 of 3 - 19+ 3-dose series) 12/28/2019 Cervical Cancer Screening: P ap Smear 2021 COVID-19 Vaccine ( - 2023-2 5 season) 2024 Influenza Vaccine (Season Ended) 2025 HIB Vaccines Aged Out No longer eligi ble based on patient's age to complete this topic Hepatitis A Vaccines Aged Out No long er eligible based on patient's age to complete this topic IPV Vaccines Aged Out No longer eligi ble based on patient's age to complete this topic MMR Vaccines Aged Out No longer eligi ble based on patient's age to complete this topic Meningococcal ACWY Vaccine Aged Out N o longer eligible based on patient's age to complete this topic Pneumococcal Vaccine: Pediat rics (0 to 5 Years) and At-Risk Patients (6 to 64 Years) Aged Out No longer eligible b ased on patient's age to complete this topic RSV Immunization Patients Un geovani 20 months Aged Out No longer eligible b ased on patient's age to complete this topic Varicella Vaccines Aged Out No longer eligible based on patient's age to complete this topic
--- OUTSIDE RECORDS SUMMARY | 2024-10-08 17:11 | XMS_ITS | Encounter Summary ---
Author Organization [facility] Address [address] [place] [id number] Phone Care Team Providers Care Life Enrichment Manager Name Role Phone Ana Gutiérrez MD Primary Care Prov ider Reason for Visit * Reason Comments Med Refill Encounter Details Date Type Department Care Team (Late st Contact Info) Description 01/06/2019 Refill [facility] [address] [phone] Ana Gutiérrez MD [address] [id number] Seasonal allergic rhinitis due to pollen Social History Tobacco Use Types Packs/Day Years [...] PM EDT documented as of this encounter Miscellaneous Notes * Telephone Encounter - Selene Suarez LPN - 01/07/2019 2:42 PM EDT Spoke with the pharmacy one refill is left no refill is needed at this time. documented in this encounter Plan of Treatment Not on file documented as of this encounter Visit Diagnoses Diagnosis Seasonal allergic rhinitis due to pollen documented in this encounter Care Teams Life Enrichment Manager Relationship Specialty Start Date End Date Ana Gutiérrez MD [address] [place] [id number] PCP - General 08/01/17 documented as of this encounter
== END 2024-10-08 16:55 | disposition home or self-care (01) ==
LOC: HO.HMCC 14:26
PROVIDERS: PCP Internal Medicine; Visit Provider Internal Medicine
DX: Z00.01 Encounter for general adult medical examination with abnormal findings (principal); F90.0 Attention-deficit hyperactivity disorder, predominantly inattentive type; Z83.49 Family history of other endocrine, nutritional and metabolic diseases

== ENCOUNTER → 2024-10-08 14:25 | Outpatient (BNVA) | payer OTHER, SELFPAY | PROVIDERS: PCP Internal Medicine; Visit Provider Internal Medicine | DX: Z00.01 Encounter for general adult medical examination with abnormal findings (principal); F90.0 Attention-deficit hyperactivity disorder, predominantly inattentive type; Z83.49 Family history of other endocrine, nutritional and metabolic diseases | CPT/HCPCS: 96127 ==